=== PATIENT | female | born 1960 | race Caucasian/White ===

== ENCOUNTER 2017-06-22 08:41 | Observation (INO) ==
--- NOTE | 2017-06-21 08:39 | Discharge Summary ---
<Gay Peterson E - Last Filed: 06/21/17 08:37> Date of Encounter: 06/21/17 - Discharge Diagnosis (1) Status post right knee replacement Priority: Primary Status: Acute (2) Arthritis of right knee Priority: Primary Status: Chronic (3) LISA on CPAP Priority: Secondary Status: Chronic (4) History of traumatic brain injury Priority: Secondary Status: Chronic (5) Seizure disorder Priority: Secondary Status: Chronic (6) GERD (gastroesophageal reflux disease) Priority: Secondary Status: Chronic Qualifiers: Esophagitis presence: esophagitis presence not specified Qualified Code(s) : K21.9 - Gastro-esophageal reflux disease without esophagitis (7) Migraine Priority: Secondary Status: Chronic Qualifiers: Migraine type: unspecified Status migrainosus presence: without status migrainosus Intractability: not intractable Qualified Code(s): G43.909 - Migraine, unspecified, not intractable, without status migrainosus (8) Depression Priority: Secondary Status: Chronic Qualifiers: Depression Type: unspecified Qualified Code(s): F32.9 - Major depressive disorder, single episode, unspecified (9) Anxiety Priority: Secondary Status: Chronic (10) Fibromyalgia Priority: Secondary Status: Chronic (11) Breast cancer Priority: Secondary Status: Chronic Qualifiers: Breast location: unspecified site of breast Estrogen receptor status: unspecified Patient sex: female Laterality: unspecified laterality Qualified Code(s): C50.919 - Malignant neoplasm of unspecified site of unspecified female breast - Hospital Course Hospital course: Ms. Peres is a 57 year old female - Time Spent with Patient Total time spent providing and/or coordinating discharge services: - Discharge Medications Home Medications: Docusate [Colace] 100 mg PO BID PRN 10/15/14 [History] Omeprazole [Prilosec] 20 mg PO DAILY 10/15/14 [History] Solifenacin Succinate [Vesicare] 5 mg PO DAILY 10/15/14 [History] Venlafaxine [Effexor] 225 mg PO QAM 10/15/14 [History] LevETIRAcetam [Keppra] 1,000 mg PO BID 10/17/14 [History] Aspirin 81 mg PO DAILY 04/15/16 [History] Cetirizine HCl 10 mg PO DAILY PRN 04/15/16 [History] SUMAtriptan succinate [Imitrex] 50 mg PO Q2H PRN 04/15/16 [History] Topiramate [Topamax] 25 mg PO HS 04/15/16 [History] Trazodone HCl 150 mg PO HS 04/15/16 [History] Exemestane [Aromasin] 25 mg PO DAILY #90 tablet 07/04/16 [Rx] Aspirin Enteric Coated [Aspirin EC] 325 mg PO BID 10 Days #20 tablet. [Rx] OxyCODONE Immed Rel [Roxicodone 5 MG] 5 mg PO Q6HR PRN 7 Days #28 tablet [Rx] Calcium Carbonate/Vitamin D3 [Calcium 600 + Vit D Tablet] 1 tab PO BID 06/22/17 [History] Cholecalciferol (D-3) [Vitamin D] 1,000 unit PO DAILY 06/22/17 [History] Oxycodone HCl/Acetaminophen [Percocet 7.5-325 mg Tablet] 1 tab PO DAILY PRN [History] Ziprasidone [Geodon] 80 mg PO DAILY 06/22/17 [History] Allergies/Adverse Reactions: 3 Allergy/AdvReac Type Severity Reaction Status Date / Time Penicillins [PCN] Allergy Difficulty Verified 06/22/17 09:07 Breathing Sulfa (Sulfonamide Allergy Difficulty Verified 06/22/17 09:07 Antibiotics) Breathing bacitracin AdvReac Blister Verified 06/22/17 09:07 [From Neosporin ([id number])] Neomycin AdvReac Blister Verified 06/22/17 09:07 [From Neosporin ([id number])] polymyxin B AdvReac Blister Verified 06/22/17 09:07 [From Neosporin ([id number])] adhesive AdvReac Blister Uncoded 03/17/17 13:31 Primary care physician: Devin Davis MD - Patient Status Disposition: Home, Self-Care Condition: Good - Discharge Instructions Follow Up With: Devin Davis MD [Primary Care Provider] - <Freddy Scott - Last Filed: 06/23/17 06:21> Orders not resulted at time of discharge: Pending orders 06/22/17 01:00 XR knee RT limited 1-2V [XR] Routine Hemoglobin and Hematocrit [HEME] Routine 06/22/17 09:18 US anesthesia pain block [US] Routine Date of Encounter: 06/23/17 Time of Encounter: 06:20 - Discharge Diagnosis (1) Status post right knee replacement Priority: Primary Status: Acute (2) Arthritis of right knee Priority: Primary Status: Chronic (3) LISA on CPAP Priority: Secondary Status: Chronic (4) Seizure disorder Priority: Secondary Status: Chronic (5) GERD (gastroesophageal reflux disease) Priority: Secondary Status: Chronic Qualifiers: Esophagitis presence: esophagitis presence not specified Qualified Code(s) : K21.9 - Gastro-esophageal reflux disease without esophagitis (6) Migraine Priority: Secondary Status: Chronic Qualifiers: Migraine type: unspecified Status migrainosus presence: without status migrainosus Intractability: not intractable Qualified Code(s): G43.909 - Migraine, unspecified, not intractable, without status migrainosus (7) Depression Priority: Secondary Status: Chronic Qualifiers: Depression Type: unspecified Qualified Code(s): F32.9 - Major depressive disorder, single episode, unspecified (8) Anxiety Priority: Secondary Status: Chronic (9) Fibromyalgia Priority: Secondary Status: Chronic (10) Breast cancer Priority: Secondary Status: Chronic Qualifiers: Breast location: unspecified site of breast Estrogen receptor status: unspecified Patient sex: female Laterality: unspecified laterality Qualified Code(s): C50.919 - Malignant neoplasm of unspecified site of unspecified female breast (11) History of traumatic brain injury Priority: Secondary Status: Chronic (12) Acute blood loss anemia Priority: Primary Status: Acute - Hospital Course Hospital course: Ms. Peres is a 57 year old female Status post total knee replacement The patient had an uneventful postoperative course. They received antibiotics and physical therapy and were discharged in stable condition. There will follow -up in the office in 2 weeks. - Time Spent with Patient Total time spent providing and/or coordinating discharge services: Primary care physician: Devin Davis MD - Patient Status Functional capacity at discharge: uses cane/walker Overall status at discharge: patient is progressing back to baseline
[2017-06-22] MEDS ORDERED: Ondansetron 4 MG/2 ML VIAL ONE (08:44)
[2017-06-22] MEDS ORDERED: Lidocaine -MPF 4% 5 ML AMPUL ONE (08:44)
[2017-06-22] MEDS ORDERED: *HR* Propofol 200 MG/20 ML VIAL IVP ONE (08:44)
[2017-06-22] MEDS ORDERED: Dexamethasone 4 MG/ML VIAL ONE (08:44)
[2017-06-22] MEDS ORDERED: *HR* Midazolam HCl 2 MG/2 ML VIAL ONE (08:44)
[2017-06-22] MEDS ORDERED: *HR* FentaNYL (PF) 100 MCG/2 ML VIAL ONE (08:44)
[2017-06-22] MEDS ORDERED: Lidocaine -MPF 2% 2 ML VIAL ONE (08:44)
[2017-06-22] MEDS ORDERED: *HR* Succinylcholine 200 MG/10 ML VIAL IVP ONE (08:44)
[2017-06-22] MEDS ORDERED: *HR* Promethazine 25 MG/ML VIAL IVP PRN (08:44)
[2017-06-22] MEDS ORDERED: Lidocaine -MPF 1% 2 ML VIAL ID ONE (09:09)
[2017-06-22] MEDS ORDERED: Clindamycin 900 MG/50 ML 900 MG/50 ML IV.SOLN IVPB ONE (09:09)
[2017-06-22] MEDS ORDERED: Plasma-Lyte A (PH 7.4) 1,000 ML IVC SCH (09:15)
[2017-06-22] MEDS ORDERED: Famotidine 20 MG/2 ML VIAL IVP ONE (09:17)
[2017-06-22] MEDS ORDERED: Gabapentin 300 MG CAPSULE PO ONE (09:18)
--- NOTE | 2017-06-22 09:35 | History & Physical Report ---
Date of Encounter: 06/22/17 Time of Encounter: 09:35 24 Hour HP Update - Instructions Instructions: If the History and Physical is less than 30 days old and was completed prior to A.M. admission and or procedure and has NOT been updated on calendar day of procedure please complete this update prior to performing procedure. - Update Patient reports changes in Medical Condition: No Changes in examination, assessment, or condition: No Changes in Medication: No Preop tests/diagnostics Reviewed: Yes Surgery Remains Indicated: Yes Consent for Planned Operative Procedure(s) Verified: Yes - Pre-Operative Checklist Preoperative Checklist Indicated: No Prophylactic Antibiotic Ordered: Yes Is VTE Prophylaxis Indicated?: Yes
[2017-06-22] MEDS ORDERED: ROPIVACAINE HCL/PF 0.5% 30 ML VIAL ONE (09:45)
--- NOTE | 2017-06-22 09:52 | Anesthesia Evaluation PreOp ---
Date of Encounter: 06/22/17 Time of Encounter: 09:50 - Past History Planned Operation: Rt TKA Cardiac History: Denies any Significant Hx Pulmonary History: LISA Dx (CPAP 10) TUB OPERATOR History: Seizures (last one two years ago) Other Medical History: Denies Any Significant HX Anesthesia History: No Prior Anesthetic Complications : No Alcohol Use: occasionally Drug use: none Medications and Allergies Docusate [Colace] 100 mg PO BID PRN 10/15/14 [History] Omeprazole [Prilosec] 20 mg PO DAILY 10/15/14 [History] Solifenacin Succinate [Vesicare] 5 mg PO DAILY 10/15/14 [History] Venlafaxine [Effexor] 225 mg PO QAM 10/15/14 [History] LevETIRAcetam [Keppra] 1,000 mg PO BID 10/17/14 [History] Aspirin 81 mg PO DAILY 04/15/16 [History] Cetirizine HCl 10 mg PO DAILY PRN 04/15/16 [History] SUMAtriptan succinate [Imitrex] 50 mg PO Q2H PRN 04/15/16 [History] Topiramate [Topamax] 25 mg PO HS 04/15/16 [History] Trazodone HCl 150 mg PO HS 04/15/16 [History] Exemestane [Aromasin] 25 mg PO DAILY #90 tablet 07/04/16 [Rx] Aspirin Enteric Coated [Aspirin EC] 325 mg PO BID 10 Days #20 tablet. [Rx] OxyCODONE Immed Rel [Roxicodone 5 MG] 5 mg PO Q6HR PRN 7 Days #28 tablet [Rx] Calcium Carbonate/Vitamin D3 [Calcium 600 + Vit D Tablet] 1 tab PO BID 06/22/17 [History] Cholecalciferol (D-3) [Vitamin D] 1,000 unit PO DAILY 06/22/17 [History] Oxycodone HCl/Acetaminophen [Percocet 7.5-325 mg Tablet] 1 tab PO DAILY PRN [History] Ziprasidone [Geodon] 80 mg PO DAILY 06/22/17 [History] 3 Allergy/AdvReac Type Severity Reaction Status Date / Time Penicillins [PCN] Allergy Difficulty Verified 06/22/17 09:07 Breathing Sulfa (Sulfonamide Allergy Difficulty Verified 06/22/17 09:07 Antibiotics) Breathing bacitracin AdvReac Blister Verified 06/22/17 09:07 [From Neosporin ([id number])] Neomycin AdvReac Blister Verified 06/22/17 09:07 [From Neosporin ([id number])] polymyxin B AdvReac Blister Verified 06/22/17 09:07 [From Neosporin ([id number])] adhesive AdvReac Blister Uncoded 03/17/17 13:31 - Meds/Allergy Pre-op Review Medications Reviewed: Yes Allergies Reviewed: Yes Beta Blockers on Current Med List: No Anesthesia Results - Labs Laboratory Tests 06/15/17 06/15/17 06/15/17 16:11 16:11 16:11 Hgb 14.5 Hct 42.4 Plt Count 262 PT 11.1 INR 1.0 Sodium 141 Potassium 4.2 BUN 13 Creatinine 0.84 Anesthesia Exam O2 Sat Height 1.68 m Height 1.68 m Height 1.68 m Weight 75.296 kg Weight 75.296 kg Weight 75.296 kg O2 Sat by Pulse Oximetry 97 O2 Sat by Pulse Oximetry 97 Vital Signs Temp Pulse Resp BP Pulse Ox 98.5 F 89 18 110/75 97 06/22/17 08:56 06/22/17 08:56 06/22/17 08:56 06/22/17 08:56 06/22/17 08:56 Height: 5'6 Weight: 166 lbs NPO (# of Hours): MN Pain Scale: 0 - HEENT Pupil (Motor): Pupils equal, EOMI Mallampati: II Teeth: Normal Oral Opening: Greater than 3 - TUB OPERATOR LOC: Oriented TUB OPERATOR Motor: Normal RUE, Normal LUE, Normal RLE, Normal LLE, Normal Face TUB OPERATOR Sensory: Normal: RUE, LUE, RLE, LLE, Face - Cardiac Rhythm: Regular Murmur: None JVD: No Carotid Bruit: No - Pulmonary Breath Sounds: bilateral Clear Respiratory Effort: Symmetrical Anesthesia Assess/Plan ASA Score: 2 Modified Gene Scale for Level of Consciousness: Cooperative, oriented, and tranquil Anesthetic Plan: Regional, MAC Monitoring Plan: Standard Monitors Recovery Plan: PACU (Discussed SAB with Adductor Canal Block, possible GA, agrees to proceed)
[2017-06-22] MEDS ORDERED: Bupivacaine/Clonidine Syringe 1 EACH SYRINGE ONE (10:12)
[2017-06-22] MEDS ORDERED: Ethanol\\Acetic Acid\\Na Ace\\Ben 1,000 ML IRRIG.SOLN IR ONE (10:24)
--- NOTE | 2017-06-22 10:32 | Anesthesia Procedures ---
Date of Encounter: 06/22/17 Time of Encounter: 09:50 Procedures: Anesthesia - Nerve Block Procedure Date: 06/22/17 Time: 10:15 Pre-op Diagnosis: Rt Knee OA Surgical Procedure: Rt TKA Checklist: Correct Patient Identifier Correct side: Right Blood Thinner: No Monitor Applied: EKG, BP, Pulse Oximetry Sedation: Versed (mg): 2 Sedation: Fentanyl (mcg): 50 Indication: Post Op Analgesia Pre-op Neuro Deficits: No Block Type: Femoral, Other (IPACK) Catheter placed: No Depth at skin (cm): 3 Sterile Technique: Yes Ultrasound used: Yes Anatomy identified: Yes Visual spread of Local: Yes Neuro Stimulation: No Nerve Stimulator Range: >0.4 - 0.6 mA Blood on Needle Aspiration: No Smooth Injection of Local: Yes Pain with Injection of Local: No Prep: Chlorhexadine Needle: 22 x 50 mm Stimuplex Local: 0.25% Bupivicaine w/Clonidine 20 mcg/cc, Ropivacaine Volume (cc): 30 Number of Attempts: 1 Complications: None/effective block Vitals: Vital Signs/O2 Sat/Glucose, Most Current Temp Pulse Resp BP Pulse Ox 06/22/17 09:15 98.5 F 89 18 110/75 97 06/22/17 08:56 98.5 F 89 18 110/75 97
[2017-06-22] MEDS ORDERED: *HR* PHENYLEPHRINE 1,000 MCG/10 ML SYRINGE IVP ONE (11:38)
[2017-06-22] MEDS ORDERED: Ketorolac 30 MG/ML VIAL ONE (11:53)
--- NOTE | 2017-06-22 12:25 | Orthopedic Operative Note ---
Date of procedure: 06/22/17 Pre-op diagnosis: Right knee arthritis Post-op diagnosis: same Procedure: Procedure: Right robotic-assisted Total knee replacement Estimated blood loss: 200 cc Hardware: Metal and polyethylene replacement. [place] Femur: 5 Tibia: 4 TS insert: 13 Patella: 39 Exam Under anesthesia: 9 degrees hyperextension 0 degrees varus alignment as calculated by the robot full flexion and no instability Procedural Notes: Grade 3 arthritic changes patellofemoral joint and medial compartment, and grade 4 arthritic changes lateral compartment. Operative procedure: The patient was brought to the operating room and placed on the operating room table. After general anesthesia was administered the operative knee was examined. Findings were noted in the exam under anesthesia. The operative extremity was prepped and draped in sterile surgical fashion. The patient received IV antibiotics prior to skin incision. A standard midline incision was made centered over the patella. The incision was made through the skin and subcutaneous tissue. A medial parapatellar tendon approach was performed. Care was taken to preserve tissue along the medial aspect of the patella. And to protect the patella tendon. The deep MCL was released off the medial tibia. The infra patella fat pad was excised. The patella was everted and cut was made at the level of the insertion of the quadriceps and patella tendon. The patella was sized to a 39 the guide was seated and the lug holes are drilled. Knee was brought into flexion. Patient noted to have grade 4 arthritic changes lateral compartment, grade 3 arthritic changes medial compartment and patellofemoral joint. Steinmann pins were placed in the tibia and the femur for the tibial and femoral arrays respectively. Checkpoints were also placed in the tibia and the femur for calculation purposes. The knee including the femur and the tibial registered. Osteophytes, ACL and PCL were excised at this point. Extension and flexion were assessed with a valgus stress components were adjusted on the computer to balance the knee. Femoral cuts were made first with robotic assistance, these included the anterior cut posterior cuts chamfer cuts. Tibial cut was then performed with robotic assistance as well. Bone fragments were removed, as well as the medial and lateral meniscus. The size 5 femoral guide was seated box cut was made lug holes are drilled. The size 4 tibial tray was seated and prepared with the fin cutter. Trial reduction with the 13 TS Samantha revealed extension of 0 degree and 1 degree varus and full flexion. No varus valgus instability. Trial reduction revealed excellent patella tracking. All trial components were removed all bony surfaces were irrigated. The Tibia was seated followed by the femur, The Samantha size 13 was seated and secured patella. Patient had similar findings for motion and stability. The knee was closed by the PA. The knee was then irrigated out with 2 L of pulse irrigation. The extensor mechanism was closed with #2 FiberWire suture and #2 PDS suture. The subcutaneous tissue was then irrigated and closed deep with #1 PDS suture superficially with 0 PDS suture and skin was closed with zip tie The patient was then placed in a sterile dressing and a postoperative brace extubated and transferred to recovery room in stable condition. Anesthesia: GETA Surgeon: Freddy Scott Was there an event marketing assistant present: Yes Gut Sorter: Kerri Diamond Estimated blood loss (cc): 200 Condition: stable Disposition: PACU
[2017-06-22] MEDS: *HR* HYDROmorphone (PF) 1 MG/ML SYRINGE IVP PRN ×2 (13:01→13:06)
--- NOTE | 2017-06-22 13:40 | Anesthesia Evaluation Post Op ---
Date of Encounter: 06/22/17 Time of Encounter: 13:35 - Vital Signs Vital Signs: Vital Signs/O2 Sat, Most Current Temp Pulse Resp BP Pulse Ox 97.8 F 78 17 105/67 98 06/22/17 13:36 06/22/17 13:36 06/22/17 13:36 06/22/17 13:36 06/22/17 13:36 - Lungs Lungs: Clear Ascult./Percussion - Airway Airway: Non-obstructed - Cardiovascular Regular Rate - Mental Status Mental Status: Alert & Oriented, Answers Appropriately, Baseline Status - Pain Pain Scale: 8 (dilaudid given) Pain Scale used: Numeric (1 - 10) - Nausea Vomiting Nausea Vomiting: Not Present - Hydration Hydration: Ice chips, Has not voided - Discharge PostOp Status: Transfer Patient to floor
[2017-06-22 13:46] LABS: Hematocrit 37.3 % (35.3-44.9)
[2017-06-22] MEDS ORDERED: Ringers Solution, Lactated 1,000 ML IVC SCH (14:30)
[2017-06-22] MEDS ORDERED: Sennosides 8.6 MG TABLET PO PRN (14:30)
[2017-06-22] MEDS ORDERED: Temazepam 15 MG CAPSULE PO PRN (14:30)
[2017-06-22] MEDS ORDERED: *HR* OxyCODONE/APAP 5/325 TABLET PO PRN (14:30)
[2017-06-22] MEDS ORDERED: MOM Conc 10 ML UD.LIQ PO PRN (14:30)
[2017-06-22] MEDS ORDERED: traMADol 50 MG TABLET PO PRN (14:30)
[2017-06-22] MEDS ORDERED: Naloxone 0.4 MG/ML INJ IVP PRN (14:30)
[2017-06-22] MEDS ORDERED: Ondansetron 4 MG/2 ML VIAL IVP PRN (14:30)
[2017-06-22] MEDS ORDERED: SUMAtriptan succinate 50 MG TABLET PO PRN (14:32)
[2017-06-22] MEDS ORDERED: *HR* OxyCODONE/APAP 7.5/325 TABLET PO PRN (14:32)
[2017-06-22] MEDS ORDERED: Loratadine 10 MG TABLET PO PRN (14:32)
[2017-06-22] MEDS: *HR* OxyCODONE Immed Rel 5 MG TABLET PO PRN ×3 (14:39→22:35)
[2017-06-22] MEDS ORDERED: Clindamycin 900 MG/50 ML 900 MG/50 ML IV.SOLN IVPB SCH (16:00)
[2017-06-22] MEDS: *HR* Enoxaparin 30 MG/0.3 ML SYRINGE SQ SCH (18:37)
[2017-06-22] MEDS: Clindamycin 900 MG/50 ML 900 MG/50 ML IV.SOLN IVPB SCH (18:38)
[2017-06-22] MEDS ORDERED: traZODone 50 MG TABLET PO SCH (21:00)
[2017-06-22] MEDS ORDERED: Topiramate 25 MG TABLET PO SCH (21:00)
[2017-06-22] MEDS: levETIRAcetam 250 MG TABLET PO SCH (21:27)
[2017-06-23 01:50] LABS: Hematocrit 28.5 % (35.3-44.9)
[2017-06-23 01:52] LABS: Hemoglobin 9.8 g/dL (11.5-15.4)
[2017-06-23 02:08] LABS: BUN/Creatinine Ratio 15 (6-26); Blood Urea Nitrogen 8 mg/dL (6-20); Calcium 7.9 mg/dL (8.6-10.3); Carbon Dioxide 22 mEq/L (23-29); Chloride 108 mEq/L (98-107); Glucose 88 mg/dL (70-105); Osmolality,Calculated 280 (280-300); Potassium 4.3 mEq/L (3.5-5.1); Sodium 136 mEq/L (136-145); eGFR For African Americans > 60 (> 60); eGFR For Non-African Americans > 60 (> 60)
[2017-06-23] MEDS: Clindamycin 900 MG/50 ML 900 MG/50 ML IV.SOLN IVPB SCH (02:43)
[2017-06-23] MEDS: *HR* OxyCODONE Immed Rel 5 MG TABLET PO PRN ×3 (02:45→12:07)
[2017-06-23] MEDS: *HR* Enoxaparin 30 MG/0.3 ML SYRINGE SQ SCH (05:15)
--- NOTE | 2017-06-23 06:21 | Orthopedics Progress Note ---
Date of Encounter: 06/23/17 Time of Encounter: 06:21 - Assessment and Plan (1) Status post right knee replacement Current Visit: No Status: Acute (2) Arthritis of right knee Current Visit: No Status: Chronic (3) LISA on CPAP Current Visit: No Status: Chronic (4) Seizure disorder Current Visit: No Status: Chronic (5) GERD (gastroesophageal reflux disease) Current Visit: No Status: Chronic Qualifiers: Esophagitis presence: esophagitis presence not specified Qualified Code(s) : K21.9 - Gastro-esophageal reflux disease without esophagitis (6) Migraine Current Visit: No Status: Chronic Qualifiers: Migraine type: unspecified Status migrainosus presence: without status migrainosus Intractability: not intractable Qualified Code(s): G43.909 - Migraine, unspecified, not intractable, without status migrainosus (7) Depression Current Visit: No Status: Chronic Qualifiers: Depression Type: unspecified Qualified Code(s): F32.9 - Major depressive disorder, single episode, unspecified (8) Anxiety Current Visit: No Status: Chronic (9) Fibromyalgia Current Visit: No Status: Chronic (10) Breast cancer Current Visit: No Status: Chronic Qualifiers: Breast location: unspecified site of breast Estrogen receptor status: unspecified Patient sex: female Laterality: unspecified laterality Qualified Code(s): C50.919 - Malignant neoplasm of unspecified site of unspecified female breast (11) History of traumatic brain injury Current Visit: No Status: Chronic (12) Acute blood loss anemia Current Visit: Yes Status: Acute Subjective Interval history: Patient was seen this morning doing well without complaints. Afebrile vital signs stable. Operative extremity: Neurovascularly intact Dressing clean dry and intact Calves nontender Assessment and plan: Continue with postoperative care Hemoglobin 9.8 discharged today Objective Vital signs: Vital Signs Temp Pulse Resp BP Pulse Ox 06/23/17 04:16 98.3 F 74 14 99/64 96 06/23/17 00:05 98.3 F 67 14 91/55 95 06/22/17 19:09 98.7 F 89 18 103/63 98 06/22/17 16:00 97.8 F 97 17 111/73 96 06/22/17 14:56 97.6 F 84 15 114/71 100 06/22/17 14:25 97.8 F 86 16 96/60 06/22/17 13:54 97.7 F 81 16 99/67 100 06/22/17 13:36 97.8 F 78 17 105/67 98 06/22/17 13:26 97.8 F 84 15 103/71 96 06/22/17 13:16 81 14 115/68 94 06/22/17 13:06 84 16 105/77 97 06/22/17 12:56 98.1 F 71 16 118/78 97 06/22/17 11:21 74 102/67 97 06/22/17 11:07 75 106/72 97 06/22/17 10:58 78 16 112/88 95 06/22/17 10:45 75 16 98/69 95 06/22/17 10:30 74 16 105/71 96 06/22/17 10:15 77 16 111/69 97 06/22/17 10:01 75 18 107/73 97 06/22/17 09:15 98.5 F 89 18 110/75 97 06/22/17 08:56 98.5 F 89 18 110/75 97 Intake and Output 06/22/17 06/22/17 06/23/17 15:59 23:59 07:59 Intake Total 350 / 350 200 / 200 Output Total 200 / 200 0 / 0 0 / 0 Balance -200 / -200 350 / 350 200 / 200 Intake: IV Fluids 50 / 50 Cleocin Premix 900 MG/50 ML 900 50 / 50 mg In 50 ml @ 50 mls/hr IVPB Q8H [facility] Rx#:[id number] Oral 300 / 300 200 / 200 Output: Urine 0 / 0 0 / 0 Estimated Blood Loss 200 / 200 Other: # Voids 1 1 Weight 75.296 kg - Labs CBC & BMP: 06/23/17 01:32 06/23/17 01:32 Labs: Abnormal lab results Hgb 9.8 g/dL (11.5-15.4) L D 06/23/17 01:32 Hct 28.5 % (35.3-44.9) L 06/23/17 01:32 Chloride 108 mEq/L (98-107) H 06/23/17 01:32 Carbon Dioxide 22 mEq/L (23-29) L 06/23/17 01:32 Creatinine 0.52 mg/dL (0.60-1.20) L 06/23/17 01:32 Calcium 7.9 mg/dL (8.6-10.3) L 06/23/17 01:32 - VTE Documentation of Mechanical Device: Venous foot pump, device Consult Discharge Plan - Plan Referrals: Devin Davis MD [Primary Care Provider] -
[2017-06-23] MEDS: levETIRAcetam 250 MG TABLET PO SCH (08:14)
[2017-06-23] MEDS ORDERED: Venlafaxine XR (24 HR) 75 MG CAP.ER.24H PO SCH (09:00)
[2017-06-23] MEDS ORDERED: Aspirin 81 MG TAB.CHEW PO SCH (09:00)
[2017-06-23] MEDS ORDERED: Cholecalciferol (D-3) 1,000 UNIT TABLET PO SCH (09:00)
[2017-06-23] MEDS ORDERED: Ziprasidone 80 MG CAPSULE PO SCH (09:00)
[2017-06-23 11:41] VITALS: BP 106/66
== END 2017-06-23 14:48 | disposition home or self-care (01) | DRG 470 ==
LOC: SAMDAY 08:41 → 3NENU 13:39 → INTOOBSV 13:39
PROVIDERS: ADMIT Orthopaedic Surgery; ATTEND Orthopaedic Surgery

== ENCOUNTER 2018-04-12 16:35 | Inpatient (IN) ==
[2018-04-12] MEDS ORDERED: Mag Hydrox/Al Hydrox/Simeth 30 ML UDC PO PRN (17:24)
[2018-04-12] MEDS ORDERED: traZODone 50 MG TABLET PO PRN (17:24)
[2018-04-12] MEDS ORDERED: *HR* LORazepam 2 MG/ML VIAL IM PRN (17:24)
[2018-04-12] MEDS ORDERED: MOM Conc 10 ML UD.LIQ PO PRN (17:24)
[2018-04-12] MEDS ORDERED: Haloperidol Lactate 5 MG/ML VIAL IM PRN (17:24)
[2018-04-12] MEDS ORDERED: *HR* LORazepam 1 MG TABLET PO PRN ×2 (17:24→17:53)
[2018-04-12] MEDS ORDERED: Ibuprofen 400 MG TABLET PO PRN (17:24)
[2018-04-12] MEDS ORDERED: Loratadine 10 MG TABLET PO PRN (17:53)
[2018-04-12] MEDS: traZODone 50 MG TABLET PO SCH (20:58)
[2018-04-12] MEDS: levETIRAcetam 250 MG TABLET PO SCH (20:58)
[2018-04-12] MEDS: Topiramate 25 MG TABLET PO SCH (20:59)
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
[2018-04-13] MEDS: Aspirin 81 MG TAB.CHEW PO SCH (08:35)
[2018-04-13] MEDS: levETIRAcetam 250 MG TABLET PO SCH ×2 (08:35→21:14)
[2018-04-13] MEDS: Cholecalciferol (D-3) 1,000 UNIT TABLET PO SCH (08:36)
[2018-04-13] MEDS: *HR* OxyCODONE/APAP 7.5/325 TABLET PO PRN ×2 (08:37→21:15)
[2018-04-13] MEDS: (Exemestane [Aromasin] 25 MG) PO SCH (08:49)
[2018-04-13 11:01] LABS: Basophils # 0.1 K/mcL (0.0-0.2); Basophils % 0.9 %; Eosinophils # 0.1 K/mcL (0.0-0.6); Eosinophils % 1.5 %; Hematocrit 41.1 % (35.3-44.9); Hemoglobin 13.8 g/dL (11.5-15.4); Immature Granulocytes % 0.5 % (0-4); Lymphocytes # 1.3 K/mcL (0.6-4.6); Lymphocytes % 19.1 %; Mean Corpuscular HGB Conc 33.6 g/dL (31.6-35.5); Mean Corpuscular Hemoglobin 29.4 pg (28.0-33.3); Mean Corpuscular Volume 87.6 fL (83.0-100.0); Mean Platelet Volume 10.4 fL (9.4-12.4); Monocytes # 0.6 K/mcL (0.0-1.3); Monocytes % 8.3 %; Neutrophils # 4.7 K/mcL (1.6-8.9); Platelet Count 220 K/mcL (140-400); Red Blood Count 4.69 M/mcL (3.82-4.97); Red Cell Distribution Width 12.5 % (11.5-14.5); Segmented Neutrophils % 69.7 %
[2018-04-13 11:30] LABS: Alanine Aminotransferase 11 Units/L (7-52); Albumin 4.3 g/dL (3.5-5.7); Albumin/Globulin Ratio 2.2 (1.1-2.2); Alkaline Phosphatase 72 Units/L (34-104); Aspartate Amino Transferase 13 Units/L (13-39); BUN/Creatinine Ratio 18 (6-26); Bilirubin,Total 1.1 mg/dL (0.3-1.0); Blood Urea Nitrogen 16 mg/dL (6-20); Calcium 9.8 mg/dL (8.6-10.3); Carbon Dioxide 27 mEq/L (23-29); Chloride 109 mEq/L (98-107); Glucose 94 mg/dL (70-105); Osmolality,Calculated 295 (280-300); Potassium 3.8 mEq/L (3.5-5.1); Sodium 142 mEq/L (136-145); Total Protein 6.3 g/dL (6.4-8.9); eGFR For Non-African Americans > 60 (> 60)
[2018-04-13 11:40] LABS: Thyroid Stimulating Hormone 1.059 mcIU/mL (0.340-5.600)
[2018-04-13] MEDS: hydrOXYzine pamoate 25 MG CAPSULE PO PRN ×3 (12:58→21:15)
[2018-04-13] MEDS: SUMAtriptan succinate 50 MG TABLET PO PRN (16:19)
[2018-04-13] MEDS: Mirtazapine 15 MG TABLET PO SCH (21:14)
[2018-04-13] MEDS: Topiramate 25 MG TABLET PO SCH (21:15)
[2018-04-13] MEDS: traZODone 50 MG TABLET PO SCH (21:15)
[2018-04-14] MEDS: (Exemestane [Aromasin] 25 MG) PO SCH (08:13)
[2018-04-14] MEDS: Aspirin 81 MG TAB.CHEW PO SCH (08:14)
[2018-04-14] MEDS: Cholecalciferol (D-3) 1,000 UNIT TABLET PO SCH (08:14)
[2018-04-14] MEDS: levETIRAcetam 250 MG TABLET PO SCH ×2 (08:14→20:46)
[2018-04-14] MEDS: SUMAtriptan succinate 50 MG TABLET PO PRN ×3 (08:14→20:45)
[2018-04-14] MEDS: hydrOXYzine pamoate 25 MG CAPSULE PO PRN ×2 (09:03→17:20)
[2018-04-14] MEDS: *HR* OxyCODONE/APAP 7.5/325 TABLET PO PRN (10:20)
[2018-04-14 12:43] LABS: Bilirubin,Urine Negative (Negative); Blood,Urine Negative (Negative); Clarity,Urine Clear (Clear); Color,Urine Yellow (Yellow); Glucose,Urine (UA) Normal (Normal); Ketones,Urine Negative (Negative); Leukocyte Esterase,Urine Negative (Negative); Nitrite,Urine Negative (Negative); Protein,Urine Negative (Neg-Trace); Specific Gravity,Urine 1.013 (1.010-1.025); Urobilinogen,Urine Normal (Normal)
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
[2018-04-14] MEDS: traZODone 50 MG TABLET PO SCH (20:43)
[2018-04-14] MEDS: Mirtazapine 15 MG TABLET PO SCH (20:43)
[2018-04-14] MEDS: Topiramate 25 MG TABLET PO SCH (20:46)
[2018-04-15] MEDS: SUMAtriptan succinate 50 MG TABLET PO PRN (07:02)
--- NOTE | 2018-04-15 07:16 | Discharge Summary ---
Date of Encounter: 04/15/18 Time of Encounter: 07:13 Diagnosis - Discharge Diagnosis (1) Depression Status: Acute Qualifiers: Depression Type: major depressive disorder Major depression recurrence: r ecurrent Active/Remission status: currently active Major depression episode severity: severe Psychotic features: without psychotic features Qualified Code(s): F33.2 - Major depressive disorder, recurrent severe without psychotic features Medications - Discharge Medications Prescriptions: Mirtazapine [Remeron] 7.5 mg PO HS #30 tablet Solifenacin Succinate [Vesicare] 5 mg PO DAILY 10/15/14 [History] LevETIRAcetam [Keppra] 1,000 mg PO BID 10/17/14 [History] Aspirin 81 mg PO DAILY 04/15/16 [History] Cetirizine HCl 10 mg PO DAILY PRN 04/15/16 [History] SUMAtriptan succinate [Imitrex] 50 mg PO Q2H PRN 04/15/16 [History] Topiramate [Topamax] 25 mg PO HS 04/15/16 [History] Trazodone HCl 150 mg PO HS 04/15/16 [History] Calcium Carbonate/Vitamin D3 [Calcium 600 + Vit D Tablet] 1 tab PO BID 06/22/17 [History] Cholecalciferol (D-3) [Vitamin D] 1,000 unit PO DAILY 06/22/17 [History] Oxycodone HCl/Acetaminophen [Percocet 7.5-325 mg Tablet] 1 tab PO DAILY PRN 06/22/17 [History] Exemestane [Aromasin] 25 mg PO DAILY #90 tablet 07/08/17 [Rx] Sertraline [Zoloft] 100 mg PO DAILY 03/17/18 [History] LORazepam [Ativan] 1 mg PO BID PRN 04/12/18 [History] Docusate [Colace] 100 mg PO DAILY PRN 04/13/18 [History] Omeprazole [PriLOSEC] 20 mg PO DAILY 04/13/18 [History] Mirtazapine [Remeron] 7.5 mg PO HS #30 tablet 04/15/18 [Rx] Allergy/AdvReac Type Severity Reaction Status Date / Time Penicillins [PCN] Allergy Difficulty Verified 03/17/18 11:07 Breathing Sulfa (Sulfonamide Allergy Difficulty Verified 03/17/18 11:07 Antibiotics) Breathing bacitracin AdvReac Blister Verified 03/17/18 11:07 [From Neosporin ([id number])] Neomycin AdvReac Blister Verified 03/17/18 11:07 [From Neosporin ([id number])] polymyxin B AdvReac Blister Verified 03/17/18 11:07 [From Neosporin ([id number])] adhesive AdvReac Blister Uncoded 03/17/18 11:07 Results Procedures and tests throughout hospitalization: Completed Lab Orders Category Date Time Status Complete Blood Count [HEME] Routine Lab 04/13/18 10:29 Completed Comprehensive Metabolic Panel Routine Lab 04/13/18 10:29 Completed Drug Screen, Urine [UCHEM] Routine Lab 04/14/18 06:39 Completed Thyroid Stimulating Hormone Routine Lab 04/13/18 10:29 Completed Urinalysis Reflex Cult & Micro [URIN] Routine Lab 04/14/18 11:46 Completed Provider Date of admission: 04/12/18 16:35 Primary care physician: PCP NONE Discharging clinician: Malorie Cuadra Psychiatry Exam - Constitutional Vitals: Temp Pulse Resp BP Pulse Ox 99.2 F 80 16 115/78 98 04/14/18 20:26 04/14/18 20:26 04/14/18 20:26 04/14/18 20:26 04/14/18 20:26 Additional observations: Patient is alert and oriented [address] time and situation, muscle tone grossly intact, speech normal limits for rhythm, rate, content and volume. Muscle tone is normal for patient. Grooming and hygiene are appropriate and eye contact is maintained appropriately. The patient appears age appropriate. Behavior is cooperative. Thought content is negative for suicidal or homicidal thoughts ideations or plans. There are no hallucinations or delusions. Mood is good and affect is reactive, consistent and congruent. Thought process is linear, logical, goal oriented and coherent thought. Memory is intact to recent and remote as the patient is able to recall several items after a delay and can consistently recall childhood information. Language and vocabulary are consistent with education and intelligence is estimated to be average based on education and general fund of information. Concentration and attention are sustained and appropriate. Insight and judgment are intact as the patient agrees with the mental health diagnosis and the need for ongoing mental health treatment. Hospital Course Hospital course: Ms. Clark is a 58 year old female who was admitted as a direct admission from [facility] due to suicidal ideations. Upon admission she was started on Remeron at night help with sleep and further help with her depression. Her other psychiatric medications were continued. Patient was educated of diagnosis and the risk-benefit side effects of this alternative treatment options and was monitored for responsiveness and side effects. Mood anxiety sleep and appetite interest improved as did future orientation. Self- harm thoughts subsided, thinking cleared, psychosis resolved, and mood stabilized. Patient was able to attend both individual and group therapy sessions as well as meet with the psychiatrist daily and urged to discuss any medication or treatment issues or other concerns. The patient was educated primarily by verbal means about their diagnosis and manifestations in their life. The option for treatment including group and individual therapy programming was offered to the patient in addition to the use of medications with all their potential risks, benefits, and side effects as well as the risks of not taking medication and non-adhereance were discussed with the patient at length. The patient was given the opportunity to ask questions and was noted to participate in the treatment in the planning process. The patient felt ready and eager to be discharged from the inpatient psychiatric unit to continue on with treatment as an outpatient. The patient agreed that is they were safe for this disposition. The patient was considered to be able to participate in informed consent and decision making with respect to medical, legal, and financial issues of the time of discharge. At the time of discharge the patient adamantly denied any concerns for lethality including suicidal or homicidal thoughts ideations or plans and was future oriented toward ongoing mental health care, medical follow-up and sobriety. Time spent discussing smoking cessation with patient: 3 to 10 minutes Does patient wish to continue nicotine replacement upon disc: No (n/a) - Time Spent with Patient Total time spent providing and/or coordinating discharge services: Less than 30 minutes Assessment and Plan - Patient/Caregiver Discharge Instructions Activity: resume usual activities as tolerated Diet: regular diet Additional Instructions: Continue current medications. Follow up with outpatient mental health. Encourage continued therapy in a group or individual setting. The patient was discharged to home. - Follow up Plan Follow up with: [facility] [Outside] - 05/03/18 11:20 am (Appointment scheduled on May 03 at 11:[address] Lloyd for medication management. Please contact the office at the number above at least 24 hours in advance if you are unable to keep this appointment. ) Overall status at discharge: Stable Disposition: Home, Self-Care Quality - Multiple Antipsychotics Patient discharged on 2 or more antipsychotic medications: No Procedures - Procedures Procedures: Medication Management, Crisis Stabilization, Supportive Therapy, Group Therapy, Psychoeducational Therapy
[2018-04-15] MEDS: levETIRAcetam 250 MG TABLET PO SCH (08:38)
[2018-04-15] MEDS: Aspirin 81 MG TAB.CHEW PO SCH (08:39)
[2018-04-15] MEDS: Cholecalciferol (D-3) 1,000 UNIT TABLET PO SCH (08:39)
[2018-04-15] MEDS: hydrOXYzine pamoate 25 MG CAPSULE PO PRN (08:40)
[2018-04-15] MEDS: *HR* OxyCODONE/APAP 7.5/325 TABLET PO PRN (08:40)
[2018-04-15] MEDS: (Exemestane [Aromasin] 25 MG) PO SCH (08:51)
[2018-04-15 08:55] VITALS: BP 103/70
== END 2018-04-15 10:20 | disposition home or self-care (01) | DRG 885 ==
LOC: 1ANU 16:35
PROVIDERS: ADMIT Psychiatry & Neurology Psychiatry; ATTEND Psychiatry & Neurology Psychiatry

== ENCOUNTER 2021-09-25 12:58 | Inpatient (IN) ==
[2021-09-25] MEDS ORDERED: clonazePAM 0.5 MG TABLET PO STA (13:08)
[2021-09-25 13:29] LABS: Basophils # 0.1 K/mcL (0.0-0.2); Basophils % 0.5 %; Eosinophils % 0.3 %; Hematocrit 42.5 % (35.3-44.9); Hemoglobin 14.5 g/dL (11.5-15.4); Immature Granulocytes % 0.5 % (0-4); Lymphocytes # 1.7 K/mcL (0.6-4.6); Lymphocytes % 17.3 %; Mean Corpuscular HGB Conc 34.1 g/dL (31.6-35.5); Mean Corpuscular Hemoglobin 30.2 pg (28.0-33.3); Mean Corpuscular Volume 88.5 fL (83.0-100.0); Mean Platelet Volume 10.2 fL (9.4-12.4); Monocytes # 0.6 K/mcL (0.0-1.3); Neutrophils # 7.3 K/mcL (1.6-8.9); Platelet Count 233 K/mcL (140-400); Red Cell Distribution Width 12.6 % (11.5-14.5); Segmented Neutrophils % 75.4 %; White Blood Count 9.6 K/mcL (4.3-11.1)
[2021-09-25 13:50] LABS: Bacteria,Urine Few per hpf (None-Few); Bilirubin,Urine Negative (Negative); Blood,Urine Negative (Negative); Calcium Oxalate Crystals,Urine Present per hpf; Clarity,Urine Turbid (Clear); Color,Urine Yellow (Yellow); Glucose,Urine (UA) Normal (Normal); Ketones,Urine Negative (Negative); Leukocyte Esterase,Urine Negative (Negative); Mucus,Urine Few per lpf (None-Few); Nitrite,Urine Negative (Negative); Protein,Urine 30 mg/dL (Neg-Trace); RBC,Urine 0-3 per hpf (0-3); Specific Gravity,Urine 1.027 (1.010-1.025); Urobilinogen,Urine Normal (Normal); WBC,Urine 0-3 per hpf (0-3)
[2021-09-25 14:06] LABS: Acetaminophen < 10 mcg/mL (10-20); BUN/Creatinine Ratio 14 (6-26); Blood Urea Nitrogen 11 mg/dL (6-20); Calcium 9.2 mg/dL (8.6-10.3); Carbon Dioxide 25 mEq/L (23-29); Chloride 110 mEq/L (98-107); Cholesterol 219 mg/dL (< 200); Ethanol < 10 mg/dL (Less than 10); Glucose 128 mg/dL (70-105); HDL Cholesterol 73 mg/dL (40-59); LDL Cholesterol,Calculated 127 mg/dL (< 100); Osmolality,Calculated 297 (280-300); Potassium 3.6 mEq/L (3.5-5.1); Salicylate < 2.5 mg/dL (15.0-30.0); Sodium 143 mEq/L (136-145); Triglycerides 94 mg/dL (< 150); eGFR For African Americans > 60 (> 60); eGFR For Non-African Americans > 60 (> 60)
[2021-09-25 14:20] LABS: Amphetamine Screen,Urine Negative ng/mL (Cutoff=1000); Barbiturate Screen,Urine Negative ng/mL (Cutoff=200); Benzodiazepines Screen,Urine Negative ng/mL (Cutoff=200); Cannabinoid Screen,Urine Negative ng/mL (Cutoff = 50); Cocaine Screen,Urine Negative ng/mL (Cutoff= 300); Opiate Screen,Urine Negative ng/mL (Cutoff=300); Phencyclidine Screen,Urine Negative ng/mL (Cutoff=25)
[2021-09-25 16:29] LABS: Estimated Average Glucose 105 mg/dl; Hemoglobin A1C 5.3 %
[2021-09-25] MEDS ORDERED: hydrOXYzine pamoate 25 MG CAPSULE PO PRN (17:29)
[2021-09-25] MEDS ORDERED: Haloperidol Lactate 5 MG/ML VIAL IM PRN (17:29)
[2021-09-25] MEDS ORDERED: Acetaminophen 325 MG TABLET PO PRN (17:29)
[2021-09-25] MEDS ORDERED: traZODone 50 MG TABLET PO PRN (17:29)
[2021-09-25] MEDS ORDERED: *HR* LORazepam 1 MG TABLET PO PRN (17:29)
[2021-09-25] MEDS ORDERED: Ibuprofen 400 MG TABLET PO PRN (17:29)
[2021-09-25] MEDS ORDERED: MOM Conc 10 ML UD.LIQ PO PRN (17:29)
[2021-09-25] MEDS ORDERED: haloperidoL 5 MG TABLET PO PRN (17:29)
[2021-09-25] MEDS ORDERED: *HR* LORazepam 2 MG/ML VIAL IM PRN (17:29)
[2021-09-25] MEDS ORDERED: Loratadine 10 MG TABLET PO PRN (17:32)
[2021-09-25] MEDS ORDERED: *HR* OxyCODONE/APAP 7.5/325 TABLET PO PRN (17:32)
[2021-09-25 18:35] LABS: Influenza A PCR Negative (Negative); Influenza B PCR Negative (Negative); Resp. Syncytial Virus PCR Negative (Negative)
[2021-09-25 18:44] LABS: SARS-CoV-2 by PCR (In House) Negative (Negative)
[2021-09-25] MEDS ORDERED: Mirtazapine 15 MG TABLET PO SCH (21:00)
[2021-09-25] MEDS ORDERED: traZODone 50 MG TABLET PO SCH (21:00)
[2021-09-25] MEDS: levETIRAcetam 250 MG TABLET PO SCH (21:45)
[2021-09-25] MEDS: Topiramate 25 MG TABLET PO SCH (21:47)
[2021-09-26] MEDS: Topiramate 25 MG TABLET PO SCH ×2 (08:14→21:10)
[2021-09-26] MEDS: levETIRAcetam 250 MG TABLET PO SCH ×2 (08:14→21:11)
[2021-09-26] MEDS: Cholecalciferol (D-3) 1,000 UNIT (25MCG) TABLET PO SCH (08:15)
[2021-09-26] MEDS: Aspirin 81 MG TAB.CHEW PO SCH (08:15)
[2021-09-26 09:35] VITALS: O2SAT 98
[2021-09-26] MEDS ORDERED: NARATRIPTAN HCL 2.5 MG PO PRN (11:20)
[2021-09-26] MEDS ORDERED: clonazePAM 0.5 MG TABLET PO PRN (11:20)
[2021-09-26] MEDS: SUMAtriptan succinate 50 MG TABLET PO PRN (12:55)
[2021-09-26] MEDS ORDERED: Mirtazapine 15 MG TABLET PO SCH (21:00)
[2021-09-26] MEDS ORDERED: traZODone 50 MG TABLET PO SCH (21:00)
[2021-09-26] MEDS ORDERED: lamoTRIgine 100 MG TABLET PO SCH ×2 (21:00)
[2021-09-27 08:22] VITALS: BP 97/66; PULSE 87; TEMP 97.8
[2021-09-27] MEDS: SUMAtriptan succinate 50 MG TABLET PO PRN (08:40)
[2021-09-27] MEDS: Topiramate 25 MG TABLET PO SCH (08:41)
[2021-09-27] MEDS: levETIRAcetam 250 MG TABLET PO SCH (08:42)
[2021-09-27] MEDS: Aspirin 81 MG TAB.CHEW PO SCH (08:43)
[2021-09-27] MEDS ORDERED: Multivit/Ca/Min/Fe/FA 1 TAB TABLET PO SCH (09:00)
[2021-09-27] MEDS ORDERED: EPA PO SCH (09:00)
[2021-09-27] MEDS ORDERED: FISH OIL PO SCH (09:00)
[2021-09-27] MEDS ORDERED: DHA PO SCH (09:00)
[2021-09-27] MEDS: Cholecalciferol (D-3) 1,000 UNIT (25MCG) TABLET PO SCH (13:32)
== END 2021-09-27 14:25 | disposition home or self-care (01) | DRG 885 ==
LOC: EMEROOARM 12:58 → 1ANU 19:03
PROVIDERS: ADMIT Psychiatry & Neurology Forensic Psychiatry; ATTEND Psychiatry & Neurology Forensic Psychiatry